=== PATIENT | female | born 1975 | race Caucasian/White ===

== ENCOUNTER → 2019-11-09 15:50 | Outpatient (CLI) | payer OTHER, SELFPAY ==
--- NOTE | ~2019-11-09 | CT_ITS ---
EXAMINATION: CT abdomen pelvis w con DATE: 11/09/2019 16:27 INDICATION: Epigastric pain TECHNIQUE: Computed tomography (CT) of the abdomen and pelvis was performed with 100 cc Omnipaque 350 intravenous contrast. The dose-length product was 1093.34 mGy-cm. Automated exposure control and ite rative reconstruction technique were employed. COMPARISON: None. FINDINGS: Lung bases are unremarkable. Heart size normal. No significant pleural or pericardial effus ion. Status post cholecystectomy. Fatty infiltration of the liver. The spleen, pancreas, adrenal glands and kidneys are unremarkable. N o bowel obstruction. No abnormal pelvic masses or fluid collections. No free air or free fluid. Ellen l appendix. Status post spinal fusion anteriorly at L5-S1. This prosthesis present at L4-5 and L5-S1. No acute osseous abnormality. IMPRESSION: 1. No acute abdominal abnormality. 2: Hepatic steatosis. Reviewed, dictated and finalized at location A. DENTIAL REAL ESTATE APPRAISER
[2019-11-09 16:18] LABS: Blood Urea Nitrogen 8 mg/dL (8-26); Estimated Glomerular Filt Rate > 60
== END ==
PROVIDERS: PCP Student in an Organized Health Care Education/Training Program; Visit Provider Student in an Organized Health Care Education/Training Program
DX: R10.13 Epigastric pain (principal)
CPT/HCPCS: 74177; Q9967

== ENCOUNTER → 2020-08-19 07:20 | Outpatient (CLI) | payer OTHER, SELFPAY ==
--- NOTE | ~2020-08-19 | MM_ITS ---
EXAMINATION: MM screening tulio BI w pedrito HISTORY: Screening TECHNIQUE: Craniocaudal and mediolateral oblique 3-D tomosynthesis images were obtained and synthetic 2-D images were generated. CAD analysis was submitted and interpreted. COMPARISON: Comparison to multiple prior studies sequentially, with oldest reviewed study dated 02/22. BREAST PARENCHYMAL COMPOSITION: There are scattered areas of fibroglandular density. FINDINGS: There is no evidence of suspicious mass, calcification, or architectural distortion to sugg est malignancy in either breast. There has been no suspicious interval change. IMPRESSION: 1. No mammographic evidence of malignancy. 2. Recommend routine screening mammography in one year. BI-RADS Category 1: Negative Reviewed, dictated and finalized at location A. 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
== END ==
PROVIDERS: PCP Student in an Organized Health Care Education/Training Program; Visit Provider Obstetrics & Gynecology
DX: Z12.31 Encounter for screening mammogram for malignant neoplasm of breast (principal)
CPT/HCPCS: 77063; 77067

== ENCOUNTER → 2022-07-30 14:01 | Outpatient (CLI) | payer OTHER, SELFPAY ==
--- NOTE | ~2022-07-30 | MM_ITS ---
EXAMINATION: MM screening tulio BI w pedrito HISTORY: Screening TECHNIQUE: Craniocaudal and mediolateral oblique 3-D tomosynthesis images were obtained and synthetic 2-D images were generated. CAD analysis was submitted and interpreted. COMPARISON: Comparison to multiple prior studies sequentially, with oldest reviewed study dated 02/22. BREAST PARENCHYMAL COMPOSITION: There are scattered areas of fibroglandular density. FINDINGS: There is no evidence of suspicious mass, calcification, or architectural distortion to sugg est malignancy in either breast. There has been no suspicious interval change. IMPRESSION: 1. No mammographic evidence of malignancy. 2. Recommend routine screening mammography in one year. BI-RADS Category 1: Negative Reviewed, dictated and finalized at location A.
== END ==
PROVIDERS: PCP Student in an Organized Health Care Education/Training Program; Visit Provider Obstetrics & Gynecology Gynecology
DX: Z12.31 Encounter for screening mammogram for malignant neoplasm of breast (principal)
CPT/HCPCS: 77063; 77067

== ENCOUNTER → 2022-08-08 13:39 | Outpatient (CLI) | payer OTHER, SELFPAY ==
--- NOTE | ~2022-08-08 | MR_ITS ---
EXAMINATION: MR ankle RT wo/w con DATE: 08/08/2022 16:11 INDICATION: Right ankle mass TECHNIQUE: Magnetic resonance imaging (MRI) of the right ankle was performed without intravenous cont rast. Sequences included sagittal, coronal, and axial proton-density weighted fast spin echo without and with fat saturation. COMPARISON: None. FINDINGS: Medial ankle ligaments: Deep and superficial deltoid ligaments as well as the spring ligament are normal. Lateral ankle ligaments: The anterior and posterior inferior tibiofibular ligaments are normal. The anterior talofibular, calc aneofibular and posterior talofibular ligaments are normal. Tendons: Achilles tendon is normal. The peroneus longus and brevis tendons are normal. The tibialis anterior a nd extensor hallucis longus and extensor digitorum longus tendons are normal. The tibialis posterior, flexor digitorum longus and flexor hallucis longus tendons are normal. Plantar fascia: Plantar aponeurosis is normal. Bones/other: Bone alignment is normal. No fracture or pathologic marrow replacing process. Mild osteoarthritis wit h mild subarticular edema-like signal changes at the second tarsal metatarsal joint. Tiny central def ect at the distal articular surface of the medial cuneiform at the first tarsal metatarsal joint whic h could be related to prior trauma or surgery. Correlate with surgical history. Postoperative changes with foci of susceptibility artifact at the dorsal aspect of the medial naviculocuneiform articulati on. Underlying the marker indicating the mass of concern is a 3.4 x 3.2 x 1.3 cm lenticular region of thickened macroscopic fat most likely a subcutaneous lipoma although there is no clearly defined per ipheral capsule. No other abnormal soft tissue masses or abnormally enhancing lesions. Lisfranc ligam ent complex appears normal. Fluid: Physiologic amount fluid in the joint spaces. Small multilobulated ganglion cyst at the posterolatera l aspect of the ankle extending between and superficial to the posterior talofibular and posterior in ferior tibiofibular ligaments. No other abnormal fluid collections. IMPRESSION: 1. 3.4 x 3.2 x 1.3 cm subcutaneous lipoma underlying the marker indicating the mass of concern. Reviewed, dictated and finalized at location A.
== END ==
PROVIDERS: PCP Student in an Organized Health Care Education/Training Program; Visit Provider Orthopaedic Surgery
DX: M79.89 Other specified soft tissue disorders (principal)
CPT/HCPCS: 73723; A9577

== ENCOUNTER → 2022-08-08 13:42 | Outpatient (CLI) | payer OTHER, SELFPAY ==
--- NOTE | ~2022-08-08 | US_ITS ---
EXAMINATION: US pelvic complete DATE: 08/08/2022 14:31 INDICATION: Menorrhagia Comparison:No prior studies for comparison. TECHNIQUE: Multiple transabdominal sonographic images of the pelvis performed. FINDINGS: The uterus measures 10.9 x 6.7 x 6.8 cm. The endometrial complex measures 8.6 mm. The right ovary is not visualized. The left ovary measures 7.5 x 5.5 x 6.6 cm. There is a left ovaria n cyst measuring 4.2 x 4 x 3.8 cm. There is no free fluid in the pelvis. There are no abnormal masses seen on either side. IMPRESSION: 1. Enlarged left ovary containing a 4.2 cm simple cyst. 2: Enlarged uterus. No discrete mass identified. Reviewed, dictated and finalized at location B.
== END ==
PROVIDERS: PCP Student in an Organized Health Care Education/Training Program; Visit Provider Nurse Practitioner
DX: N93.8 Other specified abnormal uterine and vaginal bleeding (principal); N83.202 Unspecified ovarian cyst, left side
CPT/HCPCS: 76856

== ENCOUNTER 2022-08-27 00:41 | Day surgery (SDC) | payer OTHER, SELFPAY ==
[2022-08-20 15:28] VITALS: BMI 35.6
--- NOTE | 2022-08-20 16:10 | PC.NURSE ---
Report to the Outpatient Waiting Room, entrance under the green pavilion located off [facility], at time _1200 on date 08/27/22. Planned Procedure Time: 1400. Time changes happen often and if your time is changed the preop area will call you the afternoon before. - You and your visitor will be asked to self-screen and do not enter if you have any COVID symptoms. - We encourage only one visitor and NO visitors under age 16 are allowed at this time. Your visitor will receive communication by the phone number that is given day of service. - The patient visitor is requested to social distance or may leave the building when not with patient due to restrictions. - A mask is required within the hospital. Patients may have clear liquids (water, carbonated beverages, clear teas, apple juice) until 3 hours prior to surgery with a maximum of 20 ounces. - No food from midnight until time of surgery - Infants may have breast milk until 4 hours before surgery, infant formula 6 hours prior to surgery. - Children will be allowed to drink immediately following surgery. If applicable, please bring a bottle or sippy cup to assist with drinking. Juice, water, soda, and popsicles are readily available. For infants on formula, please bring formula the day of surgery. Pacifiers are allowed. Take the following medications with a SIP of water the morning of surgery: levothyroxine, paxil, terbinafine_ Medications to discontinue per physician vitamins, supplements___ Date to take last dose_08/24/22__ Please no make-up, nail greenlandic, hairspray, perfume, deodorant, or body powder the day of surgery. No jewelry (including any body piercings) or valuables the day of surgery, leave them at home. Please take a shower or bath the night before, or the morning of, surgery with an antibacterial soap. Wear comfortable, loose fitting clothing. Children are encouraged to wear pajamas. - Jewelry must be removed prior to entering the operating room. Rings and piercings that are not removed may be cut off. - The hospital will not accept responsibility for valuables. - Please leave all valuables, including medications, at home the day of surgery. If you are going home after surgery, a licensed trencher driver must drive you home. - NO public transportation without another adult. - We recommend that an adult stay with you for 24 hours following discharge. - We also recommend that you do not drive, make important decision, drink alcoholic beverages, or take any drugs that were not prescribed by your health care provider for at least 24 hours after your discharge time. For Pediatric surgeries, we recommend two adults accompany the child home. Follow any additional instructions given to you from your surgeon. If you or anyone in your household have experienced Covid symptoms in the past week, please notify your surgeon or the nurse liaison at the phone number below for possible testing. Telephone instructions given to Clayton Macedo and asked if any additional questions and then verbalized understanding. Patient advised to call surgeon office or pre surgery nurse liaison [phone] if any additional questions.
--- NOTE | 2022-08-27 07:45 | WPDHPUPDATE1 ---
History and Physical Update Update Date/Time: 08/27/22 07:45 History and Physical has been reviewed, including an updated exam of the patient. There are NO changes in the patient's condition. Risks, benefits, and alternatives have been discussed and questions answered. Patient agrees to proceed with procedure.
--- NOTE | 2022-08-27 07:45 | PM.HPGS ---
History of Present Illness History of Present Illness Consent: Risks, benefits, and alternatives have been discussed and questions answered. Patient agrees to proceed with procedure. Chief complaint: menorrhagia Narrative: Brittany Macedo is a 47 year old female with menorrhagia and anemia. Patient with heavy cycles resulting in anemia. Labs at the same time revealed new diagnosis of hypothyroidism which was the likely cause the bleeding. However due to the anemia it was recommended to proceed with D&C hysteroscopy as well. Risks of infection, bleeding, perforation, and fluid imbalance were reviewed. with her history of ablation the possibility of entering the cavity was also discussed. Patient voices understanding and agrees to proceed. Review of Systems Review of Systems: not repeated day of surgery; patient states no changes in status PMFSH Past Medical History Medical History (Updated 08/27/22 @ 08:34 by Donna Gonzalez MD) Anxiety Arthritis Asthma Claustrophobia Ganglion of right ankle Heart beat abnormality History of stress test Hyperlipidemia Hypothyroidism Mass of joint of right ankle Sensitivity to medication Hydrocodone and Morphine Supraventricular arrhythmia Surgical History Surgical History (Updated 08/27/22 @ 08:33 by Donna Gonzalez MD) H/O gastric sleeve (~05/2020) complicated by postop bleeding History of back surgery 2005 2009 2011 x [address] Fall History of cholecystectomy (~2010) History of dental surgery History of endometrial ablation History of foot surgery Bone spur removal Right foot 1991 bunion removal left foot 1991 Family History Family History Mother Family history of thyroid disease Family history of elevated blood lipids Father Family history of gout Family history of elevated blood lipids Other Diabetes mellitus Family history of cardiovascular disease Hypertension Social History Social History Smoking packs per day: 1 Smoking cigarettes per day: 20.0 Years smoked: 20 Smoking pack-years: 20.00 Smoking status: Former smoker Tobacco type: cigarettes Smoking end date: 10/14/07 Alcohol intake: never Substance use: never Substance use type: does not use Living arrangements: with family Gender identity (if verbalized by the patient): Female Spiritual care concerns: No Meds Home Medications and Allergies Home Medications Medication Instructions Recorded Confirmed Type calcium-vitamins B6-B12-FA tablet 1 tablet PO DAILY 07/04/22 08/20/22 History cholecalciferol (vitamin D3) 10 10 mcg PO DAILY 07/04/22 08/20/22 History mcg (400 unit) capsule lisinopril 2.5 mg tablet 2.5 mg PO DAILY 07/04/22 08/20/22 History paroxetine HCl 40 mg tablet 40 mg PO DAILY 07/04/22 08/20/22 History pediatric multivitamin no.17 2 tablet PO DAILY 07/04/22 08/20/22 History (Children's Chew Multivitamin tablet) rosuvastatin 5 mg tablet 5 mg PO DAILY 07/04/22 08/20/22 History terbinafine HCl 250 mg tablet 250 mg PO DAILY 07/04/22 08/20/22 History albuterol sulfate 90 mcg/actuation 90 mcg inhalation DAILY PRN 08/20/22 08/20/22 History aerosol inhaler Shortness Of Breath iron,carbonyl 30 mg-vitamin C 10 1 tablet PO DAILY 08/20/22 08/20/22 History mg-FOS 25 mg chewable tablet (Chewable Iron) levothyroxine 50 mcg tablet 50 mcg PO DAILY 08/20/22 08/20/22 History Allergies Allergy/AdvReac Type Severity Reaction Status Date / Time latex Allergy Mild Rash Verified 08/20/22 16:26 morphine Allergy Unknown Migraine Verified 07/17/22 17:04 hydrocodone AdvReac Unknown NAUSEA Verified 07/17/22 17:04 oxytocin AdvReac Unknown SKIN Verified 07/17/22 17:04 CRAWLING Exam Const: General: healthy appearing and alert Orientation/consciousness: patient oriented x3 Resp: Effort & Inspection: normal
--- NOTE | 2022-08-27 08:00 | WPDANESEPPF ---
Anes - Initial Pre Proc Eval Procedure: Operation Date: 08/27/22 11:15 Proposed Procedures p Hysteroscopy Dilation and Curettage - Donna Gonzalez MD Date/Time: 08/27/22 08:00 Surgeon: Donna Gonzalez MD Pre Op Diagnosis: menorrhagia Patient Data Age: 47 Gender: F Height: 1.68 m Weight: 100 kg Allergies Allergy/AdvReac Type Severity Reaction Status Date / Time latex Allergy Mild Rash Verified 08/20/22 16:26 morphine Allergy Unknown Migraine Verified 07/17/22 17:04 hydrocodone AdvReac Unknown NAUSEA Verified 07/17/22 17:04 oxytocin AdvReac Unknown SKIN Verified 07/17/22 17:04 CRAWLING Home Medications Medication Instructions Recorded Confirmed Type calcium-vitamins B6-B12-FA tablet 1 tablet PO DAILY 07/04/22 08/20/22 History cholecalciferol (vitamin D3) 10 10 mcg PO DAILY 07/04/22 08/20/22 History mcg (400 unit) capsule lisinopril 2.5 mg tablet 2.5 mg PO DAILY 07/04/22 08/20/22 History paroxetine HCl 40 mg tablet 40 mg PO DAILY 07/04/22 08/20/22 History pediatric multivitamin no.17 2 tablet PO DAILY 07/04/22 08/20/22 History (Children's Chew Multivitamin tablet) rosuvastatin 5 mg tablet 5 mg PO DAILY 07/04/22 08/20/22 History terbinafine HCl 250 mg tablet 250 mg PO DAILY 07/04/22 08/20/22 History albuterol sulfate 90 mcg/actuation 90 mcg inhalation DAILY PRN 08/20/22 08/20/22 History aerosol inhaler Shortness Of Breath iron,carbonyl 30 mg-vitamin C 10 1 tablet PO DAILY 08/20/22 08/20/22 History mg-FOS 25 mg chewable tablet (Chewable Iron) levothyroxine 50 mcg tablet 50 mcg PO DAILY 08/20/22 08/20/22 History Patient hx anesthesia problems: none Family hx anesthesia problems: none Results Review: All pre-operative results and documents have been reviewed as part of the pre-operative evaluation. [facility] Past Medical History Medical History (Updated 08/27/22 @ 08:34 by Donna Gonzalez MD) Anxiety Arthritis Asthma Claustrophobia Ganglion of right ankle Heart beat abnormality History of stress test Hyperlipidemia Hypothyroidism Mass of joint of right ankle Sensitivity to medication Hydrocodone and Morphine Supraventricular arrhythmia Surgical History Surgical History (Updated 08/27/22 @ 08:33 by Donna Gonzalez MD) H/O gastric sleeve (~05/2020) complicated by postop bleeding History of back surgery 2005 2009 2012 x [address] Fall History of cholecystectomy (~2010) History of dental surgery History of endometrial ablation History of foot surgery Bone spur removal Right foot 1991 bunion removal left foot 1991 Family History Family History Mother Family history of thyroid disease Family history of elevated blood lipids Father Family history of gout Family history of elevated blood lipids Other Diabetes mellitus Family history of cardiovascular disease Hypertension Social History Social History Smoking packs per day: 1 Smoking cigarettes per day: 20.0 Years smoked: 20 Smoking pack-years: 20.00 Smoking status: Former smoker Tobacco type: cigarettes Smoking end date: 10/14/07 Alcohol intake: never Substance use: never Substance use type: does not use Living arrangements: with family Gender identity (if verbalized by the patient): Female Spiritual care concerns: No Anes - Eval Final PreProcedure Day of Procedure 08/27/22 08:00 Patient weight: obese Heart: regular rate and rhythm Lungs: clear to auscultation Airway: Mallampati scale class II Neurological: alert and oriented Last oral intake: >/= 8 hours ASA classification: III Emergent: no Anesthetic plan: proceed Anesthesia type and monitoring: general GIVS and standard monitoring Results Review: All pre-operative results and documents have been reviewed as part of the pre-operative evaluation. Informed Consen
[2022-08-27 10:00] VITALS: BP 123/64; PULSE 84; RESP 16; TEMP 36.9; O2SAT 100
[2022-08-27] MEDS: ACETAMINOPHEN 500 MG TABLET 1000 MG PO (10:13)
[2022-08-27] MEDS: LACTATED RINGERS 1,000 ML 30 ML IV CONT (10:45)
[2022-08-27] MEDS: LIDOCAINE HCL 1% PF 30 ML VIAL 10 ML INFILTRATE (11:09)
--- NOTE | 2022-08-27 11:21 | P.OP_ITS ---
Procedure Note - Detailed Date of Procedure 08/27/22 Pre-op Diagnosis menorrhagia Post-op Diagnosis Same Procedure Performed D&C hysteroscopy with resection of polyp Surgeon Donna Gonzalez MD Anesthesia MAC and Local Findings uterus sounds to 8cm; anterior polyp; very thickened posterior wall Description of Procedure The patient is taken to the operating room and placed under anesthesia in the dorsal lithotomy position. She was prepped and draped in the usual sterile fashion. [place] speculum was placed in the vagina and the cervix grasped on the anterior tenaculum. The cervix is injected in each quadrant with 1% lidocaine. The cervix is somewhat stenotic and the small dilator is used to open the cervix. The uterus is then sounded to 8cm. The cervix is serially dilated to a 5 Hegar. The diagnostic hysteroscope was placed with the above- stated findings. Under direct visualization the polyp was excised using the resecting blade as well as the posterior wall. The hysteroscope was then removed and the sharp curette used to curette the endometrium until a good uterine cry was noted in all areas. All instruments are removed. Patient was awakened from anesthesia and taken to recovery in stable condition. Sponge, needle, and instrument counts are correct per the OR staff. Estimated Blood Loss 5 Drains No Packing No Pathology Yes ( Endometrial shavings and curettings) Complications No immediate complications Condition Stable Disposition PACU
[2022-08-27 11:26] VITALS: BP 118/61; PULSE 91; RESP 12; O2SAT 92
[2022-08-27 11:50] VITALS: BP 124/52; PULSE 75; RESP 20
--- NOTE | 2022-08-27 12:06 | SUR.PHASEII ---
PT STATES SHE TAKES OXY AT HOME FOR PAINS WITH OUT ISSUE.
[2022-08-27] MEDS: oxyCODONE HCL (*CRX) 5 MG TAB IR PO (12:08)
[2022-08-27 12:20] VITALS: BP 131/55; PULSE 71; RESP 20
[2022-08-27 12:40] VITALS: BP 131/55; PULSE 70; RESP 20
== END 2022-08-27 12:58 | disposition home or self-care (01) ==
PROVIDERS: PCP Student in an Organized Health Care Education/Training Program; Visit Provider Obstetrics & Gynecology Gynecology
PROC: 0U5B8ZZ Destruction of Endometrium, Via Natural or Artificial Opening Endoscopic (ICD-10-PCS; CPT 58563; principal; 2022-08-27 11:15)
DX: N92.0 Excessive and frequent menstruation with regular cycle (principal); N84.0 Polyp of corpus uteri; D64.9 Anemia, unspecified; J45.909 Unspecified asthma, uncomplicated; E78.5 Hyperlipidemia, unspecified; E03.9 Hypothyroidism, unspecified; Z98.84 Bariatric surgery status; F41.9 Anxiety disorder, unspecified; Z87.891 Personal history of nicotine dependence; E66.9 Obesity, unspecified; Z68.36 Body mass index [BMI] 36.0-36.9, adult; Z79.51 Long term (current) use of inhaled steroids
CPT/HCPCS: 58558; 88305; A9270; J2250; J2704; J3010; J7120

== ENCOUNTER → 2022-10-04 13:16 | Outpatient (CLI) | payer OTHER, SELFPAY ==
--- NOTE | ~2022-10-04 | US_ITS ---
Pelvic ultrasound. Clinical History: Left ovarian cyst COMPARISON: 08/08/2022 Technique: Realtime transabdominal and transvaginal scanning of the pelvis was performed. Color flow Doppler and Doppler spectral analysis were performed. Findings: The uterus is anteverted. The endometrial stripe has a thickness of 12 mm. No focal mass i s identified. The right ovary measures 3.0 x 2.3 x 3.4 cm. Simple right ovarian cyst measures 2.3 cm in diameter. The left ovary measures 3.3 x 2.1 x 2.8 cm. No significant left ovarian or adnexal mass is seen. Poor delineation of vascular flow in the ovaries, likely due to technical limitations of the study. There is no evidence of free fluid in the cul de sac. Impression: Small bilateral ovarian cysts are of no clinical significance, and require no further follow-up. Reviewed[facility] dictated and finalized at [facility]. RUMENT INSPECTOR Impression: Small bilateral ovarian cysts are of no clinical significance, and require no f urther follow-up.
== END ==
PROVIDERS: PCP Student in an Organized Health Care Education/Training Program; Visit Provider Obstetrics & Gynecology Gynecology
DX: N83.202 Unspecified ovarian cyst, left side (principal); N83.201 Unspecified ovarian cyst, right side
CPT/HCPCS: 76830; 76856

== ENCOUNTER → 2023-06-13 07:52 | Outpatient (CLI) | payer OTHER, SELFPAY ==
--- NOTE | ~2023-06-13 | MR_ITS ---
MRI of the lumbar spine Clinical History: Radiculopathy Technique: Axial T2-weighted images, and sagittal T1-weighted, T2-weighted, and T2 fat-sat images wer e acquired. Findings: There is anterior plate and interlocking screws extending from L5 to S1. There are interbod y fusion devices at the L4-L5 and L5-S1 levels. No acute fracture or subluxation evident. No suspicio us bone marrow signal abnormality evident. At L1-L2, there is moderate degenerative disc narrowing with mild disc osteophyte complex, especially the right paracentral region. There is mild facet arthropathy. No byron central canal stenosis or ne ural foraminal narrowing. At L2-L3, there is no disc bulge or herniation. There is moderate facet arthropathy. No central canal stenosis or neural foraminal narrowing. At L3-L4, there is severe degenerative disc narrowing. There is disc bulge with superimposed left par acentral disc protrusion, which in conjunction with facet arthropathy, contribute to severe central c anal stenosis/thecal sac compression. There is mild to moderate bilateral neural foraminal narrowing. At L4-L5, there is laminectomy defect with no disc bulge or herniation. No central canal stenosis. Th ere is probably moderate bilateral neural foraminal narrowing. At L5-S1, there is no disc bulge or herniation. There is probable laminectomy defects. No central can al stenosis. There is moderate left neural foraminal narrowing and minimal right neural foraminal quan rowing. Paravertebral soft tissues are unremarkable aside from expected postoperative change. Impression: Postfusion changes at L4-L5 and L5-S1, as detailed above. Severe degenerative spondylitic changes at L3-L4, as detailed above, with severe central canal stenos is/thecal sac compression. Bilateral neural foraminal narrowing at L4-L5 and L5-S1, as detailed above. Additional mild degenerative changes, as above. Reviewed, dictated and finalized at location M. Impression: Postfusion changes at L4-L5 and L5-S1, as detailed above. Severe degenerative spondylitic changes at L3-L4, as detailed above, with sever e central canal stenosis/thecal sac compression. Bilateral neural foraminal narrowing at L4-L5 and L5-S1, as detailed above. Additional mild degenerative changes, as above.
== END ==
PROVIDERS: PCP Student in an Organized Health Care Education/Training Program; Visit Provider Student in an Organized Health Care Education/Training Program
DX: M54.16 Radiculopathy, lumbar region (principal); M47.816 Spondylosis without myelopathy or radiculopathy, lumbar region; M48.07 Spinal stenosis, lumbosacral region; Z98.1 Arthrodesis status
CPT/HCPCS: 72148

== ENCOUNTER → 2023-07-13 09:30 | Outpatient (CLI) | payer OTHER, SELFPAY ==
--- NOTE | ~2023-07-13 | US_ITS ---
EXAMINATION: US transvaginal DATE: 07/13/2023 09:56 INDICATION: Other specified abnormal uterine and vaginal bleed TECHNIQUE: Multiple transabdominal and endovaginal sonographic images of the pelvis were obtained. COMPARISON: None. FINDINGS: Uterus: 9.7 x 5.7 x 5.8 cm. Heterogeneous parenchyma. Endometrial complex measures 12 mm. Right Ovary: 1.6 x 1.7 x 1.7 cm. Vascular flow is present. No adnexal mass Left Ovary: . Visualized. No adnexal mass There is no free fluid in the pelvis. IMPRESSION: Heterogeneous uterine parenchyma as can be seen with adenomyosis. 12 mm thick endometrial complex. This may be abnormal depending on menopausal status. Left ovary not sonographically visualized. Reviewed, dictated and finalized at location K. IMPRESSION: Heterogeneous uterine parenchyma as can be seen with adenomyosis. 12 mm thick endometrial complex. This may be abnormal depending on menopausal s tatus. Left ovary not sonographically visualized.
== END ==
PROVIDERS: PCP Student in an Organized Health Care Education/Training Program; Visit Provider Nurse Practitioner
DX: N93.8 Other specified abnormal uterine and vaginal bleeding (principal); N85.8 Other specified noninflammatory disorders of uterus
CPT/HCPCS: 76830

== ENCOUNTER 2023-08-05 10:22 | Outpatient (CLI) | payer OTHER, SELFPAY ==
[2023-08-05 10:59] LABS: Anion Gap 9 mmol/L (8-16); Blood Urea Nitrogen 8 mg/dL (7-17); Calcium 9.2 mg/dL (8.4-10.2); Carbon Dioxide 22 mmol/L (22-30); Chloride 106 mmol/L (98-107); Estimated Glomerular Filt Rate > 60; Glucose 140 mg/dL (65-110); Potassium 3.7 mmol/L (3.4-5.0); Sodium 137 mmol/L (137-145)
== END 2023-08-05 10:23 | disposition home or self-care (01) ==
LOC: ANHSURGERY 10:26
PROVIDERS: Anesthesiology; PCP Student in an Organized Health Care Education/Training Program; Visit Provider Obstetrics & Gynecology Gynecology
DX: E11.9 Type 2 diabetes mellitus without complications (principal); Z01.818 Encounter for other preprocedural examination
CPT/HCPCS: 36415; 80048

== ENCOUNTER 2023-08-12 01:26 | Day surgery (SDC) | payer OTHER, SELFPAY ==
[2023-07-31 13:23] VITALS: BMI 33.9
--- NOTE | 2023-07-31 13:30 | SUR.PREOP ---
Report to the Outpatient Waiting Room, entrance under the green pavilion located off [facility], at time _0630_ on date 08/12/23. Planned Procedure Time: _0830_. Time changes happen often and if your time is changed the preop area will call you the afternoon before. - You and your visitor will be asked to self-screen and do not enter if you have any COVID symptoms. - A mask is optional within the hospital at this time. Patients may have clear liquids (water, carbonated beverages, clear teas, apple juice) until 3 hours prior to surgery with a maximum of 20 ounces. - No food from midnight until time of surgery BEFORE 0530AM - Infants may have breast milk until 4 hours before surgery, infant formula 6 hours prior to surgery. - Children will be allowed to drink immediately following surgery. If applicable, please bring a bottle or sippy cup to assist with drinking. Juice, water, soda, and popsicles are readily available. For infants on formula, please bring formula the day of surgery. Pacifiers are allowed. Take the following medications with a SIP of water the morning of surgery: __PAROXETINE AND LEVOTHYROXINE__ DO NOT STOP ANY OF YOUR OTHER PRESCRIPTION MEDICATIONS PRIOR TO SURGERY ?EXCEPT THE FOLLOWING Medications to discontinue per physician HOLD VITAMIN AND SUPPLEMENTS 3 DAYS PRIOR Date to take last dose Please no make-up, nail northern irish, hairspray, perfume, deodorant, or body powder the day of surgery. No jewelry (including any body piercings) or valuables the day of surgery, leave them at home. Please take a shower or bath the night before, or the morning of, surgery with an antibacterial soap. Wear comfortable, loose fitting clothing. Children are encouraged to wear pajamas. - Jewelry must be removed prior to entering the operating room. Rings and piercings that are not removed may be cut off. - The hospital will not accept responsibility for valuables. - Please leave all valuables, including medications, at home the day of surgery. If you are going home after surgery, a licensed lease purchase truck driver must drive you home. - NO public transportation without another adult if you receive anesthesia. - We recommend that an adult stay with you for 24 hours following discharge. - We also recommend that you do not drive, make important decision, drink alcoholic beverages, or take any drugs that were not prescribed by your health care provider for at least 24 hours after your discharge time. For Pediatric surgeries, we recommend two adults accompany the child home. Follow any additional instructions given to you from your surgeon. If you or anyone in your household have experienced Covid symptoms in the past week, please notify your surgeon or the nurse liaison at the phone number below for possible testing. Telephone instructions given to _PATIENT_and asked if any additional questions and then verbalized understanding. Patient advised to call surgeon office or pre surgery nurse liaison [phone] if any additional questions.
--- NOTE | 2023-08-12 07:19 | WPDHPUPDATE1 ---
History and Physical Update Update Date/Time: 08/12/23 07:19 History and Physical has been reviewed, including an updated exam of the patient. There are NO changes in the patient's condition. Risks, benefits, and alternatives have been discussed and questions answered. Patient agrees to proceed with procedure.
--- NOTE | 2023-08-12 07:19 | PM.HPGS ---
History of Present Illness History of Present Illness Consent: Risks, benefits, and alternatives have been discussed and questions answered. Patient agrees to proceed with procedure. Chief complaint: menorrhagia with Anemia Narrative: Brittany Macedo is a 48 year old female with menorrhagia and anemia. Hysteroscopy D&C showed a polyp and benign findings. Postoperatively the patient observed her cycles and they were initially improved. Patient continued to have worsening cycles and was elected to proceed with Malu endometrial ablation. Risks of infection, bleeding, perforation, and device failure were reviewed. Success of the ablation was discussed. Patient voices understanding and agrees to proceed. Review of Systems Review of Systems: not repeated day of surgery; patient states no changes in status PMFSH Past Medical History Medical History (Updated 08/27/22 @ 08:34 by Donna Gonzalez MD) Anxiety Arthritis Asthma Claustrophobia Ganglion of right ankle Heart beat abnormality History of stress test Hyperlipidemia Hypothyroidism Mass of joint of right ankle Sensitivity to medication Hydrocodone and Morphine Supraventricular arrhythmia Surgical History Surgical History (Updated 08/12/23 @ 07:22 by Donna Gonzalez MD) H/O gastric sleeve (~05/2020) complicated by postop bleeding History of back surgery 2005 2009 2011 x [address] Fall History of cholecystectomy (~2010) History of dental surgery History of endometrial ablation History of foot surgery Bone spur removal Right foot 1991 bunion removal left foot 1991 History of hysteroscopy 09/04 benign findings Family History Family History Mother Family history of thyroid disease Family history of elevated blood lipids Father Family history of gout Family history of elevated blood lipids Other Diabetes mellitus Family history of cardiovascular disease Hypertension Social History Social History Smoking packs per day: 1 Smoking cigarettes per day: 20.0 Years smoked: 20 Smoking pack-years: 20.00 Smoking status: Never smoker Tobacco type: cigarettes Smoking end date: 10/14/07 Alcohol intake: never Substance use: never Substance use type: does not use Living arrangements: with family Occupation/Education: occupation Gender identity (if verbalized by the patient): Female Spiritual care concerns: No Meds Home Medications and Allergies Home Medications Medication Instructions Recorded Confirmed Type paroxetine HCl 40 mg tablet 40 mg PO DAILY 07/04/22 07/31/23 History rosuvastatin 5 mg tablet 5 mg PO DAILY 07/04/22 07/31/23 History terbinafine HCl 250 mg tablet 250 mg PO DAILY 07/04/22 07/31/23 History albuterol sulfate 90 mcg/actuation 90 mcg inhalation DAILY PRN 08/20/22 07/31/23 History aerosol inhaler Shortness Of Breath levothyroxine 50 mcg tablet 50 mcg PO DAILY 08/20/22 07/31/23 History omeprazole 40 mg capsule,delayed 40 mg PO DAILY 07/31/23 07/31/23 History release tirzepatide 2.5 mg/0.5 mL 2.5 mg subcut WEEKLY 07/31/23 07/31/23 History subcutaneous pen injector (Pooja) Allergies Allergy/AdvReac Type Severity Reaction Status Date / Time latex Allergy Mild Rash Verified 08/27/22 11:20 morphine Allergy Unknown Migraine Verified 08/27/22 11:20 hydrocodone AdvReac Unknown NAUSEA Verified 08/27/22 11:20 oxytocin AdvReac Unknown SKIN Verified 08/27/22 11:20 CRAWLING Exam Const: General: healthy appearing and alert Orientation/consciousness: patient oriented x3 Resp: Effort & Inspection: normal respiratory effort GI: GI Palp: Yes Soft to palpation, No Tenderness to palpation present (GI) and No Palpable mass present : External Female Exam: normal external appearance Speculum Exam - Vagina: normal appearance of the vagina and no
[2023-08-12 08:58] VITALS: BP 124/67; PULSE 78; RESP 20; TEMP 36.3; O2SAT 98
[2023-08-12] MEDS: ACETAMINOPHEN 500 MG TABLET 1000 MG PO (09:03)
[2023-08-12] MEDS: LACTATED RINGERS 1,000 ML 30 ML IV CONT (09:15)
[2023-08-12 09:38] LABS: Glucose Point of Care 95 mg/dl (65-105)
--- NOTE | 2023-08-12 09:58 | WPDANESEPPF ---
Anes - Initial Pre Proc Eval Procedure: Operation Date: 08/12/23 10:30 Proposed Procedures p Hysteroscopy with Malu Endometrial Ablation - Donna Gonzalez MD Date/Time: 08/12/23 09:58 Surgeon: Donna Gonzalez MD Pre Op Diagnosis: menorrhagia with Anemia Patient Data Age: 48 Gender: F Height: 1.68 m Weight: 97.8 kg Last Vital Signs Temp 36.3 C L 08/12/23 08:58 Pulse 78 08/12/23 08:58 Resp 20 08/12/23 08:58 BP 124/67 08/12/23 08:58 Pulse Ox 98 08/12/23 08:58 O2 Del Method Room Air 08/12/23 08:58 Allergies Allergy/AdvReac Type Severity Reaction Status Date / Time latex Allergy Mild Rash Verified 08/12/23 09:00 morphine Allergy Unknown Migraine Verified 08/12/23 09:00 hydrocodone AdvReac Unknown NAUSEA Verified 08/12/23 09:00 oxytocin AdvReac Unknown SKIN Verified 08/12/23 09:00 CRAWLING Home Medications Medication Instructions Recorded Confirmed Type paroxetine HCl 40 mg tablet 40 mg PO DAILY 07/04/22 08/12/23 History rosuvastatin 5 mg tablet 5 mg PO DAILY 07/04/22 08/12/23 History terbinafine HCl 250 mg tablet 250 mg PO DAILY 07/04/22 08/12/23 History albuterol sulfate 90 mcg/actuation 90 mcg inhalation DAILY PRN 08/20/22 08/12/23 History aerosol inhaler Shortness Of Breath levothyroxine 50 mcg tablet 50 mcg PO DAILY 08/20/22 08/12/23 History omeprazole 40 mg capsule,delayed 40 mg PO DAILY 07/31/23 08/12/23 History release tirzepatide 2.5 mg/0.5 mL 2.5 mg subcut WEEKLY 07/31/23 08/12/23 History subcutaneous pen injector (Mounjaro) Laboratory Tests 08/12/23 09:36 POC Capillary Glucose 95 mg/dl (65-105) Patient hx anesthesia problems: none Family hx anesthesia problems: none Results Review: All pre-operative results and documents have been reviewed as part of the pre-operative evaluation. [facility] Past Medical History Medical History Anxiety Arthritis Asthma Claustrophobia Ganglion of right ankle Heart beat abnormality History of stress test Hyperlipidemia Hypothyroidism Mass of joint of right ankle Sensitivity to medication Hydrocodone and Morphine Supraventricular arrhythmia Surgical History Surgical History H/O gastric sleeve (~05/2020) complicated by postop bleeding History of back surgery 2005 2009 2012 x [address] Fall History of cholecystectomy (~2010) History of dental surgery History of endometrial ablation History of foot surgery Bone spur removal Right foot 1991 bunion removal left foot 1991 History of hysteroscopy 09/04 benign findings Family History Family History Mother Family history of thyroid disease Family history of elevated blood lipids Father Family history of gout Family history of elevated blood lipids Other Diabetes mellitus Family history of cardiovascular disease Hypertension Social History Social History Smoking packs per day: 1 Smoking cigarettes per day: 20.0 Years smoked: 20 Smoking pack-years: 20.00 Smoking status: Never smoker Tobacco type: cigarettes Smoking end date: 10/14/07 Alcohol intake: never Substance use: never Substance use type: does not use Living arrangements: with family Occupation/Education: occupation Gender identity (if verbalized by the patient): Female Spiritual care concerns: No Anes - Eval Final PreProcedure Day of Procedure 08/12/23 09:58 Patient weight: obese Heart: regular rate and rhythm Lungs: clear to auscultation Airway: Mallampati scale class II Neurological: alert and oriented Last oral intake: >/= 8 hours ASA classification: III Emergent: no Anesthetic plan: proceed Anesthesia type and monitoring: general GIVS and standard monitoring Results Revie
[2023-08-12] MEDS: LIDOCAINE HCL 1% LOCAL INJ 20 ML VIAL 10 ML INFILTRATE (10:48)
[2023-08-12 11:01] VITALS: BP 117/61; PULSE 76; RESP 16; O2SAT 92
--- NOTE | 2023-08-12 11:09 | P.OP_ITS ---
Procedure Note - Detailed Date of Procedure 08/12/23 Pre-op Diagnosis menorrhagia with Anemia Post-op Diagnosis Same Procedure Performed Malu endometrial ablation Surgeon Donna Gonzalez MD Anesthesia MAC and Local Findings uterus sounds to 8cm and appears grossly secretory Description of Procedure The patient is taken to the operating room placed under anesthesia in the dorsal lithotomy position. She was prepped and draped in the usual sterile fash ion. A bivalve speculum was placed in the vagina and the cervix grasped on the anterior lip with a tenaculum. The cervix is injected in each quadrant with 1% lidocaine.The uterus is sounded to 8cm. The diagnostic hysteroscope was placed with the above-stated findings the hysteroscope was removed and the Malu device is opened. The cervix is serially dilated to an 8 Hegar. The Malu device is placed and set at 5cm. Cavity assessment passed on the 1st attempt. Treatment cycle lasted the full 2 minutes. The ablation device is removed and the hysteroscope replaced with good ablation effect noted. All instruments are removed. Sponge, needle, and instrument counts are correct per the OR staff. The patient was awakened from anesthesia and taken to recovery in stable condition. Estimated Blood Loss 5 Drains No Packing No Pathology None sent Complications No immediate complications Condition Stable Disposition PACU
[2023-08-12 11:30] VITALS: BP 123/75; PULSE 63; RESP 16; O2SAT 96
[2023-08-12 11:45] VITALS: BP 129/72; PULSE 59; RESP 16
[2023-08-12] MEDS: KETOROLAC 15 MG/ML VIAL (*BKC) IV PUSH (11:59)
[2023-08-12] MEDS: traMADol HCL (*CRX) 50 MG TABLET 100 MG PO (11:59)
[2023-08-12 12:10] LABS: Glucose Point of Care 103 mg/dl (65-105)
[2023-08-12 12:15] VITALS: BP 118/68; PULSE 58; RESP 18
== END 2023-08-12 12:37 | disposition home or self-care (01) ==
PROVIDERS: PCP Student in an Organized Health Care Education/Training Program; Visit Provider Obstetrics & Gynecology Gynecology
PROC: 0U5B8ZZ Destruction of Endometrium, Via Natural or Artificial Opening Endoscopic (ICD-10-PCS; CPT 58563; principal; 2023-08-12 10:30)
DX: N92.0 Excessive and frequent menstruation with regular cycle (principal); D64.9 Anemia, unspecified; E78.5 Hyperlipidemia, unspecified; E03.9 Hypothyroidism, unspecified; J45.909 Unspecified asthma, uncomplicated; F41.9 Anxiety disorder, unspecified; Z98.84 Bariatric surgery status; Z79.51 Long term (current) use of inhaled steroids; Z79.85 Long-term (current) use of injectable non-insulin antidiabetic drugs; Z87.891 Personal history of nicotine dependence; E66.9 Obesity, unspecified; Z68.34 Body mass index [BMI] 34.0-34.9, adult
CPT/HCPCS: 58563; 36415; 80048; 82948; A9270; J1885; J2250; J2704; J3010; J7120

== ENCOUNTER → 2023-08-17 08:58 | Outpatient (CLI) | payer OTHER, SELFPAY ==
--- NOTE | ~2023-08-17 | MR_ITS ---
MRI of the left shoulder Technique: Axial proton-density fat-sat images, coronal proton density fat-sat and T2 fat-sat images, and sagittal T1-weighted and T2 fat-sat images were acquired. Clinical History: Pain Findings: There is mild AC joint degenerative change. Coracoclavicular, coracoacromial, and coracohum eral ligaments are intact. Supraspinatus and infraspinatus tendons are intact, without partial or full-thickness tear. Subscapul kyle tendon is intact, with mild tendinosis. Tendon of long head of the biceps is intact, with intra- articular tendinosis. No definite labral tear seen. Probable sublabral foramen present. Inferior glenohumeral ligament is intact. No degenerative change or effusion of the glenohumeral join t. No fluid distention of the subcarinal/subdeltoid bursa. No muscle atrophy or edema identified. Impression: Rotator cuff tendinosis, as above. Mild AC joint degenerative change. Reviewed, dictated and finalized at [facility]. VE DIRECTORY ENGINEER Impression: Rotator cuff tendinosis, as above. Mild AC joint degenerative change.
== END ==
PROVIDERS: PCP Student in an Organized Health Care Education/Training Program; Visit Provider Student in an Organized Health Care Education/Training Program
DX: M25.512 Pain in left shoulder (principal); G89.29 Other chronic pain; M75.102 Unspecified rotator cuff tear or rupture of left shoulder, not specified as traumatic
CPT/HCPCS: 73221

== ENCOUNTER → 2023-09-10 14:51 | Outpatient (CLI) | payer OTHER, SELFPAY ==
--- NOTE | ~2023-09-10 | MM_ITS ---
EXAMINATION: MM screening tulio BI w pedrito HISTORY: Screening mammogram TECHNIQUE: Craniocaudal and mediolateral oblique 3-D tomosynthesis images were obtained and synthetic 2-D images were generated. CAD analysis was submitted and interpreted. COMPARISON: 07/30/2022, 08/19/2020 bilateral screening mammogram examinations BREAST PARENCHYMAL COMPOSITION: There are scattered areas of fibroglandular density. FINDINGS: There is no evidence of suspicious mass, calcification, or architectural distortion to sugg est malignancy in either breast. There has been no suspicious interval change. IMPRESSION: 1. No mammographic evidence of malignancy. 2. Recommend routine screening mammography in one year. BI-RADS Category 1: Negative Reviewed, dictated and finalized at location A. [employer]
== END ==
PROVIDERS: PCP Nurse Practitioner; Visit Provider Nurse Practitioner
DX: Z12.31 Encounter for screening mammogram for malignant neoplasm of breast (principal)
CPT/HCPCS: 77063; 77067

== ENCOUNTER 2023-09-17 09:14 | Outpatient (CLI) | payer OTHER, SELFPAY ==
--- NOTE | 2023-09-30 18:28 | WPDHOMESLEEP ---
Sleep Study - Home Unattended Date of Study: 09/17/23 Ordering Provider: Annie Carolina Interpreting Provider: Yina Gordillo, DO Home Sleep Study Type: Watch PAT Height: 1.68 m Weight: 88.451 kg Body Mass Index: 31.4 Neck Circumference (inches): 14 [place]: 7 Reason for Sleep Study Frequent nighttime awakenings Sleep History The patient is a 48-year-old female that had a sleep study ordered to rule out sleep apnea prior to bariatric surgery. The patient denies awakening from sleep short of breath. She frequently awakens at night with heartburn, belching or cough. She rarely snores and is rarely loud enough that others complain. She denies having trouble sleeping when she has a cold. She denies waking up gasping for air throughout the night. She denies having breathing problems at night observed by herself or others. She occasionally sweats excessively at night. She denies having heart palpitations or irregular heartbeats during the night. She rarely falls asleep during the day but never while driving. She denies sleep paralysis, cataplexy and hypnagogic / hypnopompic hallucinations. She denies having trouble at school or work due to sleepiness. She denies feeling afraid of going to sleep. She rarely has nightmares. She frequently remembers her dreams. She occasionally has thoughts racing through her mind. She rarely feels sad or depressed. She occasionally has anxiety. She occasionally has muscular tension. She denies noticing parts of her body jerk. She denies kicking during the night. She frequently has crawling and aching feelings in her legs. She frequently has leg pain during the night. She rarely grinds her teeth during sleep but never awakens with morning jaw pain. She is frequently bothered by pain during the day and occasionally awakened by pain during the night. She occasionally wakes up feeling stiff in the morning. She rarely wakes up with sore or achy muscles. She constantly wakes up with pain in the neck, spine and other joints. She goes to bed at 9:00 p.m. on weekdays and at 10:00 p.m. on the weekends. It takes her 15 minutes to fall asleep. She wakes up 1-2 times throughout the night for unknown reasons. She is able to fall back asleep within an hour. She wakes up between 5-7 a.m. on both weekdays and weekends. She typically gets 7-9 hours of sleep per night. She will stay in bed for 10 minutes after waking up in the morning. She currently lives with her adult daughter. She denies consuming any caffeinated beverages within 2 hours of bedtime. She denies engaging in physical exercise before bedtime. She will watch television before falling asleep. She will occasionally take naps in the afternoon or the evening and they are refreshing. She consumes 40 oz of caffeinated beverage per day. She quit smoking 15 years ago. She denies alcohol and recreational drug use. [facility] Past Medical History Medical History Anxiety Arthritis Asthma Claustrophobia Ganglion of right ankle Heart beat abnormality History of stress test Hyperlipidemia Hypothyroidism Mass of joint of right ankle Sensitivity to medication Hydrocodone and Morphine Supraventricular arrhythmia Surgical History Surgical History H/O gastric sleeve (~05/2020) complicated by postop bleeding History of back surgery 2005 2009 2011 x [address] Fall History of cholecystectomy (~2010) History of dental surgery History of endometrial ablation History of foot surgery Bone spur removal Right foot 1991 bunion removal left foot 1991 History of hysteroscopy 09/04 benign findings Family History Family History Mother Family history of thyroid disease Family history of elevated blood lipids Father Family history of gout Family history of elevated blood
[2023-09-30 18:31] VITALS: BMI 31.4
== END 2023-09-18 08:00 | disposition home or self-care (01) ==
LOC: ANHCSM 09:15
PROVIDERS: PCP Nurse Practitioner
DX: G47.33 Obstructive sleep apnea (adult) (pediatric) (principal)
CPT/HCPCS: 95800

== ENCOUNTER 2024-12-11 14:41 | Outpatient (CLI) | payer OTHER, SELFPAY | END 2024-12-11 14:42 | disposition home or self-care (01) | LOC: MICIMG 14:42 | PROVIDERS: PCP Nurse Practitioner; Visit Provider Nurse Practitioner | DX: Z12.31 Encounter for screening mammogram for malignant neoplasm of breast (principal); Z80.3 Family history of malignant neoplasm of breast | CPT/HCPCS: 77063; 77067 ==